=== PATIENT | male | born 1945 | race Caucasian/White ===

== ENCOUNTER → 2016-08-28 | Outpatient (CLI) | payer OTHER | LOC: BHFA 13:15 | PROVIDERS: ATTEND Internal Medicine Cardiovascular Disease | DX: I71.9 Aortic aneurysm of unspecified site, without rupture (principal); Q23.1 Congenital insufficiency of aortic valve; I25.10 Atherosclerotic heart disease of native coronary artery without angina pectoris ==

== ENCOUNTER → 2016-09-17 | Outpatient (CLI) | payer OTHER ==
[~2016-09-17] MED LIST: GADOBUTROL 10 ML VIAL IVP ONE
[2016-09-17 14:00] LABS: CREATININE 1.1 mg/dL (0.7-1.3); GLOMERULAR FILTRATION RATE > 60
== END ==
LOC: FIMAGING 12:49
PROVIDERS: ATTEND Internal Medicine Cardiovascular Disease
DX: I71.2 Thoracic aortic aneurysm, without rupture (principal); Q23.1 Congenital insufficiency of aortic valve; I25.10 Atherosclerotic heart disease of native coronary artery without angina pectoris
CPT/HCPCS: A9585; C8909

== ENCOUNTER → 2016-11-06 | Outpatient (CLI) | payer OTHER | LOC: FIMAGING 07:37 | PROVIDERS: ATTEND Family Medicine | DX: Z13.6 Encounter for screening for cardiovascular disorders (principal); I65.23 Occlusion and stenosis of bilateral carotid arteries | CPT/HCPCS: 0126T ==

== ENCOUNTER 2017-09-15 09:23 | Day surgery (SDC) | payer OTHER ==
[2017-09-15] MEDS ORDERED: diphenhydrAMINE 25 MG CAP PO ONE ×2 (09:26→09:43)
[2017-09-15] MEDS ORDERED: DIAZEPAM 5 MG TAB PO ONE (09:26)
[2017-09-15] MEDS ORDERED: NS 1,000 ML IV ONE (09:26)
[2017-09-15] MEDS ORDERED: FAMOTIDINE 20 MG TAB PO ONE (09:26)
[2017-09-15] MEDS ORDERED: ASPIRIN EC 325 MG TAB PO ONE ×2 (09:26→09:43)
[2017-09-15] MEDS ORDERED: FAMOTIDINE 20 MG TAB ONE (09:43)
[2017-09-15] MEDS ORDERED: DIAZEPAM 5 MG TAB ONE (09:43)
--- NOTE | 2017-09-15 09:56 | CPEKG ---
Heart Rate: 59 RR Interval: 1017 P-R Interval: 148 QRSD Interval: 100 QT Interval: 420 QTC Interval: 416 P Alpha: -23 QRS Alpha: -45 T Wave Alpha: -4 EKG Severity - ABNORMAL ECG - EKG Impression: SINUS RHYTHM EKG Impression: LAD, CONSIDER LAFB OR INFERIOR INFARCT EKG Impression: BORDERLINE R WAVE PROGRESSION, ANTERIOR LEADS EKG Impression: BORDERLINE T ABNORMALITIES, INFERIOR LEADS Electronically Signed By: Arpit Rodriguez 15-Sep-2017 15:04:56
[2017-09-15 10:14] LABS: PLATELET COUNT 241 10^3/uL (150-400)
[2017-09-15 10:22] LABS: PROTIME(PATIENT) 13.4 SEC (12.0-15.0)
[2017-09-15] MEDS ORDERED: LIDOCAINE 1% 300 MG/30 ML SDV ONE (10:45)
[2017-09-15] MEDS ORDERED: fentaNYL 100 MCG/2 ML INJ ONE (10:45)
[2017-09-15] MEDS ORDERED: MIDAZOLAM 2 MG/2 ML VIAL ONE (10:46)
[2017-09-15] MEDS ORDERED: IOPAMIDOL (ISOVUE-370) 150 ML BTL IV ONE (10:46)
--- NOTE | 2017-09-15 10:46 | PDPROPOC ---
Sedation Plan of Care Sedation Plan of Care: vital signs stable, mental status noted ASA Classification: ASA 2 Planned drugs: fentanyl, midazolam Mallampati Score: Class 2 Mallampati Reference Image: Patient passed 3-3-2 rule?: Yes
--- NOTE | 2017-09-15 10:46 | PDHPUP ---
History & Physical Update H&P update statement: This history and physical update is based on an assessment of the patient which was completed after admission or registration (within 24 hours), but prior to the surgery/procedure. H&P update: H&P reviewed & patient examined, no change in patient's condition since H&P completed
--- NOTE | 2017-09-15 12:05 | PDDXCAT ---
Diagnostic Cath Note - . Date: 09/15/17 Psychiatry Adult Physician: Margaret Indication: Class I/II angina, intolerance to med therapy or failure to respond - Procedure Access: right groin Procedure: left heart catheterization, coronary angiography, left ventriculogram - Materials Left Heart Cath size: 6F Left Heart Cath materials: JL4.5, JR4.0, pigtail - Findings-Left Heart Catheterization LM: Normal and bifurcates into the LAD and left circumflex LAD: Reaches the apex. There is 1 principle diagonal. There is approximately 40% ostial disease in that diagonal. There is a very minor mid LAD muscle bridge without significant flow limitation. There minimal coronary disease in the LAD. LCX: Has 2 branching obtuse marginals. Mild luminal irregularities throughout the left circumflex and its obtuse marginals. RCA: Dominant. No significant coronary disease. EDP: 32 LVEF: 65 Wall motion: normal - Findings-Right Heart Catheterization AO: 123/62 Complications: none Estimated blood loss: <50ml Closure method: manual pressure Assessment: Non flow limiting CAD. Normal LVEF. Elevated LVEDP Plan: Continue medical management
[2017-09-15] MEDS ORDERED: ONDANSETRON 4 MG/2 ML VIAL IVP PRN (12:11)
[2017-09-15] MEDS ORDERED: ATROPINE SULFATE 1 MG/10 ML SYR IVP PRN (12:11)
== END 2017-09-15 18:23 | disposition home or self-care (01) ==
LOC: FCATH 09:23
PROVIDERS: ATTEND Internal Medicine Cardiovascular Disease
DX: R07.9 Chest pain, unspecified (principal); I25.10 Atherosclerotic heart disease of native coronary artery without angina pectoris; R94.39 Abnormal result of other cardiovascular function study; Q23.1 Congenital insufficiency of aortic valve; I77.810 Thoracic aortic ectasia; I10 Essential (primary) hypertension; E78.5 Hyperlipidemia, unspecified; E11.9 Type 2 diabetes mellitus without complications; I25.2 Old myocardial infarction; E03.9 Hypothyroidism, unspecified; G47.33 Obstructive sleep apnea (adult) (pediatric); G62.9 Polyneuropathy, unspecified
CPT/HCPCS: J1644; J2250; J3010; Q9967

== ENCOUNTER → 2018-05-18 | Outpatient (CLI) | payer OTHER | LOC: SUPIMAGING 12:01 | PROVIDERS: ATTEND Family Medicine | DX: R07.9 Chest pain, unspecified (principal); K21.0 Gastro-esophageal reflux disease with esophagitis; M25.78 Osteophyte, vertebrae | CPT/HCPCS: 71046-PN ==